=== PATIENT | male | born 1960 | race African-American/Black ===

== ENCOUNTER 2021-01-13 08:26 | Emergency (ER) | payer MEDICAID, OTHER ==
[~2021-01-13] VITALS: Ht 172.7 cm; Wt 99.8 kg
[2021-01-13 08:45] VITALS: BP 171/78
== END 2021-01-13 10:49 | disposition home or self-care (01) ==
LOC: ER 08:26
DX: S93.402A Sprain of unspecified ligament of left ankle, initial encounter (principal); I10 Essential (primary) hypertension; X58.XXXA Exposure to other specified factors, initial encounter; Y93.89 Activity, other specified; Y92.89 Other specified places as the place of occurrence of the external cause; Y99.8 Other external cause status
CPT/HCPCS: 73610; 73630